=== PATIENT | male | born 1995 ===

== ENCOUNTER 2018-06-08 00:46 | Emergency (ER) | payer OTHER ==
[2018-06-08] MEDS ORDERED: Naloxone 2 MG/2 ML Syringe ONE (00:57)
[2018-06-08 01:27] LABS: ANION GAP 17.4; CHLORIDE,CL 106 mmol/L (101-111); SODIUM,NA 140 mmol/L (135-145)
[2018-06-08] MEDS ORDERED: Naloxone 2 MG/2 ML Syringe IVPUSH ONE (01:32)
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
[2018-06-08] MEDS ORDERED: Iopamidol 612 MG/ML 100 ML Bottle IVPUSH ONE (07:13)
--- NOTE | 2018-06-11 12:17 | EKG ---
06/08/2018 - WALTER MAY - TIME: 1:47 a.m. FINDINGS: As per my reading, sinus rhythm at 96. MODL /[id number]
== END 2018-06-08 02:45 ==
LOC: DL.ED 00:46
DX: M54.2 Cervicalgia (principal); M54.9 Dorsalgia, unspecified; R41.82 Altered mental status, unspecified; V59.9XXA Occupant (driver) (passenger) of pick-up truck or van injured in unspecified traffic accident, initial encounter
CPT/HCPCS: 31500; 36415; 51702; 70450; 71045; 71260; 72125; 74177; 80053; 80305; 81001; 85025; 85610; 85730; 86850; 86900; 86901; 96361; 96374; 99285; G0480; Q9967